=== PATIENT | female | born 1950 | race Two or more races ===

== ENCOUNTER 2017-10-14 04:40 | Day surgery (SDC) | payer OTHER ==
[~2017-10-14 04:40] MED LIST: ASA81 MG PO; COZAAR25 MG PO; LEVO-T25 MCG PO; LIPITOR20 MG PO; VITAMIN D10000 UNIT PO; ZANTAC300 MG PO
== END 2017-10-14 11:15 | disposition home or self-care (01) ==
LOC: CIR.AMB 04:40 → EDSTATUS 10:15 → CIR.AMB 10:15 → SURH 10:15 → CIR.AMB 11:15
DX: K80.10 Calculus of gallbladder with chronic cholecystitis without obstruction (principal)